=== PATIENT | female | born 1950 | race Caucasian/White ===

== ENCOUNTER → 2020-12-05 | Outpatient (CLI) | payer MEDICARE, BC ==
[2016-03-23 19:01] VITALS: BP 161/77
[~2020-12-05] MED LIST: HYDR-3165 PO; OXYC1TAB15 PO
--- NOTE | 2020-12-05 16:18 | RAD ---
EXAM: NM PET/CT SKULL BASE TO MID THIGH EXAM DATE: 12/05/20 INDICATION: Lung nodule RADIOPHARMACEUTICAL: 12.87 mCi of F-18 Fluorodeoxyglucose (FDG) I.V. via the right antecuital fossa. TECHNIQUE: Patient weight: 125 pounds. Following at least four-hour fasting, the patient's blood gluc ose was 99 mg/dl. Approximately 1 hour after administration of FDG, overlapping emission scanning wa s performed from the orbital meatal line through the pelvis. A low-dose CT was performed for attenua tion correction purposes and anatomic localization. Fused images of PET and CT were reviewed. Any st andardized uptake values (SUV) reported are maximum values within a volume region of interest, expres sed in gm/ml. COMPARISON: No relevant comparisons currently available FINDINGS: PET: Posterior right upper lobe groundglass pulmonary nodule abutting the major fissure shows FDG uptake t o max SUV of 0.99. Background mediastinal FDG uptake shows a max SUV of 2.21. Background liver uptake shows a max SUV of 2.69. No abnormal FDG uptake in the mediastinum or yogi. No additional abnormal FDG uptake identified in the included field of view. CT: In the head and neck, no mass or adenopathy is apparent. Multilevel cervical degenerative spondylosis is present. In the chest, lungs show centrilobular emphysema and a 2.4 x 1.3 x 1.3 cm irregular groundglass nodul e in the posterior right upper lobe abutting the major fissure with mild fissural retraction. No kip d component is apparent within it. No additional pulmonary nodules are identified with respiratory mo tion artifact degrading detail. No mediastinal or hilar adenopathy is apparent. The great vessels are normal in caliber and the heart is not enlarged. No pericardial effusion. No pleural effusion and no pneumothorax. Chest wall reveals no additional suspicious findings, superior endplate Schmorl's node at T11 is present in the setting of mild generalized osteopenia. No acute or aggressive bony lesions otherwise identified. In the abdomen and pelvis, a 2.3 cm cyst in the right kidney is present. Otherwise the solid abdomina l organs on unenhanced CT are unremarkable. No acute bowel pathology is demonstrated. Abdominal vesse ls show scattered arterial calcifications but otherwise are unremarkable. No fluid collection or free fluid is apparent. No free air. The osseous structures show osteopenia but otherwise are unremarkable. Soft tissues reveal no additio nal abnormal findings. IMPRESSION: Posterior right upper lobe groundglass 3.4 cm lung nodule with no solid component shows no abnormal F DG activity and no incidental FDG avid lesions are identified in the included field of view. Electronically signed by: Constantino Johnson MD (12/05/2020 4:15 PM) [id number]
== END ==
LOC: PETSC 09:20
PROVIDERS: ATTEND Internal Medicine Critical Care Medicine
DX: R91.8 Other nonspecific abnormal finding of lung field (principal)
CPT/HCPCS: 78815; A9552

== ENCOUNTER → 2021-02-13 | Outpatient (CLI) | payer MEDICARE, BC ==
[2016-03-23 19:01] VITALS: BP 161/77
--- NOTE | 2021-02-13 11:52 | RAD ---
CT of the chest without contrast 02/13/2021 COMPARISON STUDY: PET/CT December 05, 2020 TECHNIQUE: Multidetector CT imaging of the chest was performed without the administration of contrast . FINDINGS: Heart size is normal. No pericardial effusion is seen. Limited noncontrast enhanced evaluat ion the mediastinum demonstrates no pathologically enlarged adenopathy. There is no pneumothorax. The re is no pleural effusion or acute infiltrate. Centrilobular emphysematous changes are again noted. There is a 2.2 cm irregular opacity in the right upper lobe. Allowing for differences in technique, t his is grossly unchanged from prior PET/CT. No new nodules or masses are identified. Limited visuali zation of the upper abdomen demonstrates no acute abnormality. No acute osseous changes are identifie d. IMPRESSION: 2.2 cm opacity in the right upper lobe is grossly unchanged allowing for differences in s lice thickness technique. Recommend continued CT surveillance. CT DOSING PQRS STATEMENT: One or more of the following individualized dose reduction techniques were utilized for this examinat ion: 1. Automated exposure control 2. Adjustment of the mA and/or kV according to patient size 3. Use of iterative reconstruction technique Electronically signed by: Raphael Flood MD (02/13/2021 11:49 AM) [id number]
== END ==
LOC: CT 11:28
PROVIDERS: ATTEND Internal Medicine Critical Care Medicine
DX: R91.1 Solitary pulmonary nodule (principal)
CPT/HCPCS: 71250